=== PATIENT | male | born 1955 | race Caucasian/White ===

== ENCOUNTER 2021-02-06 13:32 | Outpatient (REF) | payer MEDICARE, OTHER, SELFPAY ==
[2021-02-06 18:35] LABS: MANUAL DIFF FLAG NO
[2021-02-06 18:37] LABS: Basophils Percent Auto 0.5 % (0-2); Eosinophils Absolute Auto 0.2 X10*3/uL (0.0-0.4); Eosinophils Percent Auto 3.2 % (0-4); Hematocrit 45.7 % (42-52); Hemoglobin 14.8 g/dl (14.0-18.0); Imm Gran Abs Auto 0.02 X10*3/uL (0.00-0.03); Imm Gran Pct Auto 0.3 % (0.0-0.4); Lymphocytes Absolute Auto 1.9 X10*3/uL (1.2-4.9); Lymphocytes Percent Auto 27.9 % (20-40); Mean Corpuscular HGB Conc 32.4 g/dl (31.0-36.0); Mean Corpuscular Volume 95.8 fL (80-98); Mean Platelet Volume 10.4 fL (9.4-12.4); Monocytes Absolute Auto 0.5 X10*3/uL (0.1-1.2); Monocytes Percent Auto 6.9 % (2-11); Neutrophils Absolute Auto 4.1 X10*3/uL (2.0-8.3); Neutrophils Percent Auto 61.2 % (45-73); Platelet Count 226 X10*3/uL (160-400); Red Blood Count 4.77 X10*6/uL (4.60-5.80); Red Cell Distribution Width 14.2 % (11.0-16.0); White Blood Count 6.7 X10*3/uL (4.8-10.8)
[2021-02-06 19:01] LABS: Alanine Aminotransferase 21 U/L (0-40); Alkaline Phosphatase 88 U/L (39-117); Anion Gap 14 (12-20); Aspartate Amino Transferase 20 U/L (5-37); Bilirubin Total 0.4 mg/dL (0.0-1.0); Blood Urea Nitrogen 11 mg/dL (9-16); Calcium 8.9 mg/dL (8.4-10.2); Carbon Dioxide 28 mmol/L (22-29); Chloride 108 mmol/L (96-108); Cholesterol 162 mg/dL; Estimated Glomerular Filt Rate > 60; Glucose Random 87 mg/dL (60-115); HDL Cholesterol 47 mg/dL; Potassium 4.3 mmol/L (3.3-5.1); Sodium 146 mmol/L (135-145); Total Protein 6.6 g/dL (6.5-8.0); Triglycerides 456 mg/dL
[2021-02-06 19:23] LABS: Prostate Specific Antigen 0.59 ng/mL (<0.05-4.0)
== END 2021-02-06 13:33 | disposition home or self-care (01) ==
LOC: HO.MANLDS 13:32
PROVIDERS: PCP Internal Medicine; Visit Provider Internal Medicine
DX: I25.10 Atherosclerotic heart disease of native coronary artery without angina pectoris (principal); Z12.5 Encounter for screening for malignant neoplasm of prostate
CPT/HCPCS: 36415; 80053; 80061; 84153; 85025

== ENCOUNTER 2021-11-06 10:28 | Outpatient (REF) | payer MEDICARE, MEDICAID, SELFPAY ==
[2021-11-06 13:26] LABS: MANUAL DIFF FLAG NO
[2021-11-06 13:30] LABS: Basophils Percent Auto 0.4 % (0-2); Eosinophils Absolute Auto 0.1 X10*3/uL (0.0-0.4); Eosinophils Percent Auto 1.4 % (0-4); Hemoglobin 14.6 g/dl (14.0-18.0); Imm Gran Abs Auto 0.03 X10*3/uL (0.00-0.03); Imm Gran Pct Auto 0.4 % (0.0-0.4); Lymphocytes Absolute Auto 1.6 X10*3/uL (1.2-4.9); Lymphocytes Percent Auto 22.8 % (20-40); Mean Corpuscular HGB Conc 33.2 g/dl (31.0-36.0); Mean Corpuscular Hemoglobin 30.8 pg (27.0-33.0); Mean Corpuscular Volume 92.8 fL (80.0-98.0); Mean Platelet Volume 10.3 fL (9.4-12.4); Monocytes Absolute Auto 0.7 X10*3/uL (0.1-1.2); Monocytes Percent Auto 9.4 % (2-11); Neutrophils Absolute Auto 4.6 x10*3/uL (2.0-8.3); Neutrophils Percent Auto 65.6 % (45-73); Platelet Count 297 X10*3/uL (160-400); Red Blood Count 4.74 X10*6/uL (4.60-5.80); Red Cell Distribution Width 13.1 % (11.0-16.0); White Blood Count 7.1 X10*3/uL (4.8-10.8)
[2021-11-06 14:00] LABS: Alanine Aminotransferase 21 U/L (0-40); Albumin Level 4.1 g/dL (3.5-5.0); Alkaline Phosphatase 79 U/L (39-117); Amylase 42 U/L (28-100); Anion Gap 13 (12-20); Aspartate Amino Transferase 18 U/L (5-37); Bilirubin Total 0.3 mg/dL (0.0-1.0); Blood Urea Nitrogen 18 mg/dL (9-16); C Reactive Protein 0.49 mg/dL (< or = 0.50); Calcium 9.4 mg/dL (8.4-10.2); Carbon Dioxide 24 mmol/L (22-29); Chloride 108 mmol/L (96-108); Estimated Glomerular Filt Rate > 60; Gamma Glutamyl Transpeptidase 25 U/L (11-51); Glucose Random 119 mg/dL (60-115); Iron 126 mcg/dL (45-160); Lipase 29 U/L (8-78); Percent Iron Saturation 34 % (15-50); Potassium 4.3 mmol/L (3.3-5.1); Sodium 141 mmol/L (135-145); Total Iron Binding Capacity 372 mcg/dL (228-428); Total Protein 6.8 g/dL (6.5-8.0); Unsaturated Iron Binding 246 ug/dL
[2021-11-06 14:14] LABS: Erythrocyte Sedimentation Rate 17 MM/HR (0-15)
[2021-11-06 14:22] LABS: Ferritin 191 ng/mL (20-250)
== END 2021-11-06 10:29 | disposition home or self-care (01) ==
LOC: HO.MANLDS 10:28
PROVIDERS: PCP Physician Assistant; Visit Provider Physician Assistant
DX: R10.9 Unspecified abdominal pain (principal)
CPT/HCPCS: 36415; 80053; 82150; 82728; 82977; 83540; 83690; 85025; 85652; 86140

== ENCOUNTER 2022-08-08 09:58 | Outpatient (REF) | payer MEDICARE, MEDICAID, SELFPAY ==
[2022-08-08 11:14] LABS: MANUAL DIFF FLAG NO
[2022-08-08 11:24] LABS: Basophils Absolute Auto 0.1 X10*3/uL (0.0-0.2); Basophils Percent Auto 0.8 % (0-2); Eosinophils Absolute Auto 0.2 X10*3/uL (0.0-0.4); Eosinophils Percent Auto 3.2 % (0-4); Hematocrit 44.6 % (42.0-52.0); Imm Gran Abs Auto 0.02 X10*3/uL (0.00-0.03); Imm Gran Pct Auto 0.3 % (0.0-0.4); Lymphocytes Percent Auto 27.2 % (20-40); Mean Corpuscular HGB Conc 33.6 g/dl (31.0-36.0); Mean Corpuscular Volume 92.1 fL (80.0-98.0); Mean Platelet Volume 10.1 fL (9.4-12.4); Monocytes Absolute Auto 0.6 X10*3/uL (0.1-1.2); Monocytes Percent Auto 7.6 % (2-11); Neutrophils Absolute Auto 4.4 x10*3/uL (2.0-8.3); Neutrophils Percent Auto 60.9 % (45-73); Platelet Count 235 X10*3/uL (160-400); Red Blood Count 4.84 X10*6/uL (4.60-5.80); Red Cell Distribution Width 13.4 % (11.0-16.0); White Blood Count 7.3 X10*3/uL (4.8-10.8)
[2022-08-08 14:39] LABS: Alanine Aminotransferase 22 U/L (0-40); Albumin Level 4.1 g/dL (3.5-5.0); Alkaline Phosphatase 94 U/L (39-117); Anion Gap 14 (12-20); Aspartate Amino Transferase 18 U/L (5-37); Bilirubin Total 0.5 mg/dL (0.0-1.0); Blood Urea Nitrogen 13 mg/dL (9-16); Calcium 9.2 mg/dL (8.4-10.2); Carbon Dioxide 25 mmol/L (22-29); Chloride 105 mmol/L (96-108); Cholesterol 162 mg/dL; Estimated Glomerular Filt Rate > 60; Glucose Random 100 mg/dL (60-115); HDL Cholesterol 38 mg/dL; LDL Cholesterol Calculated 62 mg/dl; Potassium 4.3 mmol/L (3.3-5.1); Sodium 140 mmol/L (135-145); Total Protein 6.5 g/dL (6.5-8.0); Triglycerides 314 mg/dL
== END 2022-08-08 09:59 | disposition home or self-care (01) ==
LOC: HO.MANLDS 09:58
PROVIDERS: Visit Provider Internal Medicine
DX: Z00.00 Encounter for general adult medical examination without abnormal findings (principal); Z13.220 Encounter for screening for lipoid disorders; Z12.5 Encounter for screening for malignant neoplasm of prostate
CPT/HCPCS: 36415; 80053; 80061; 84153; 85025

== ENCOUNTER 2023-04-02 09:00 | Outpatient (REF) | payer MEDICARE, MEDICAID, SELFPAY ==
[2023-04-02 11:23] LABS: MANUAL DIFF FLAG NO
[2023-04-02 11:38] LABS: Basophils Absolute Auto 0.1 X10*3/uL (0.0-0.2); Basophils Percent Auto 0.8 % (0-2); Eosinophils Absolute Auto 0.2 X10*3/uL (0.0-0.4); Eosinophils Percent Auto 2.3 % (0-4); Hematocrit 48.5 % (42.0-52.0); Hemoglobin 15.9 g/dl (14.0-18.0); Imm Gran Abs Auto 0.03 X10*3/uL (0.00-0.03); Imm Gran Pct Auto 0.4 % (0.0-0.4); Lymphocytes Absolute Auto 2.1 X10*3/uL (1.2-4.9); Lymphocytes Percent Auto 24.7 % (20-40); Mean Corpuscular HGB Conc 32.8 g/dl (31.0-36.0); Mean Corpuscular Hemoglobin 31.4 pg (27.0-33.0); Mean Corpuscular Volume 95.8 fL (80.0-98.0); Mean Platelet Volume 10.3 fL (9.4-12.4); Monocytes Absolute Auto 0.7 X10*3/uL (0.1-1.2); Monocytes Percent Auto 8.2 % (2-11); Neutrophils Absolute Auto 5.4 x10*3/uL (2.0-8.3); Neutrophils Percent Auto 63.6 % (45-73); Platelet Count 248 X10*3/uL (160-400); Red Blood Count 5.06 X10*6/uL (4.60-5.80); Red Cell Distribution Width 14.6 % (11.0-16.0); White Blood Count 8.4 X10*3/uL (4.8-10.8)
[2023-04-02 11:48] LABS: Estimated Average Glucose 91 mg/dL; Hemoglobin A1c % 4.8 %
[2023-04-02 12:23] LABS: Alanine Aminotransferase 18 U/L (0-40); Albumin Level 4.2 g/dL (3.5-5.0); Alkaline Phosphatase 98 U/L (39-117); Anion Gap 13 (12-20); Aspartate Amino Transferase 15 U/L (5-37); Bilirubin Total 0.6 mg/dL (0.0-1.0); Blood Urea Nitrogen 12 mg/dL (9-16); Calcium 9.5 mg/dL (8.4-10.2); Carbon Dioxide 27 mmol/L (22-29); Chloride 107 mmol/L (96-108); Cholesterol 150 mg/dL; Estimated Glomerular Filt Rate > 60; Glucose Random 87 mg/dL (60-115); HDL Cholesterol 35 mg/dL; LDL Cholesterol Calculated 51 mg/dl; Potassium 4.5 mmol/L (3.3-5.1); Sodium 142 mmol/L (135-145); Total Protein 6.9 g/dL (6.5-8.0); Triglycerides 320 mg/dL
[2023-04-02 12:40] LABS: Prostate Specific Antigen 0.67 ng/mL (<0.05-4.0)
== END 2023-04-02 09:01 | disposition home or self-care (01) ==
LOC: HO.MANLDS 09:00
PROVIDERS: Visit Provider Physician Assistant
DX: Z00.00 Encounter for general adult medical examination without abnormal findings (principal); I25.10 Atherosclerotic heart disease of native coronary artery without angina pectoris; E78.5 Hyperlipidemia, unspecified; Z12.5 Encounter for screening for malignant neoplasm of prostate
CPT/HCPCS: 36415; 80053; 80061; 83036; 84153; 85025

== ENCOUNTER 2024-03-20 08:01 | Outpatient (REF) | payer MEDICARE, MEDICAID, SELFPAY ==
[2024-03-20 13:08] LABS: MANUAL DIFF FLAG NO
[2024-03-20 13:31] LABS: Basophils Absolute Auto 0.1 X10*3/uL (0.0-0.2); Basophils Percent Auto 0.7 % (0-2); Eosinophils Absolute Auto 0.2 X10*3/uL (0.0-0.4); Eosinophils Percent Auto 3.3 % (0-4); Hemoglobin 15.8 g/dl (14.0-18.0); Imm Gran Abs Auto 0.03 X10*3/uL (0.00-0.03); Imm Gran Pct Auto 0.4 % (0.0-0.4); Lymphocytes Absolute Auto 2.2 X10*3/uL (1.2-4.9); Lymphocytes Percent Auto 32.3 % (20-40); Mean Corpuscular HGB Conc 32.9 g/dl (31.0-36.0); Mean Corpuscular Hemoglobin 30.8 pg (27.0-33.0); Mean Corpuscular Volume 93.6 fL (80.0-98.0); Mean Platelet Volume 9.8 fL (9.4-12.4); Monocytes Absolute Auto 0.5 X10*3/uL (0.1-1.2); Monocytes Percent Auto 7.9 % (2-11); Neutrophils Absolute Auto 3.7 x10*3/uL (2.0-8.3); Neutrophils Percent Auto 55.4 % (45-73); Platelet Count 217 X10*3/uL (160-400); Red Blood Count 5.13 X10*6/uL (4.60-5.80); Red Cell Distribution Width 14.3 % (11.0-16.0); White Blood Count 6.7 X10*3/uL (4.8-10.8)
[2024-03-20 13:49] LABS: Alanine Aminotransferase 22 U/L (0-40); Albumin Level 3.9 g/dL (3.5-5.0); Alkaline Phosphatase 85 U/L (39-117); Anion Gap 12 (12-20); Aspartate Amino Transferase 21 U/L (5-37); Bilirubin Total 0.5 mg/dL (0.0-1.0); Blood Urea Nitrogen 11 mg/dL (9-16); Calcium 9.3 mg/dL (8.4-10.2); Carbon Dioxide 25 mmol/L (22-29); Chloride 108 mmol/L (96-108); Cholesterol 144 mg/dL (<200); Estimated Glomerular Filt Rate > 60; Glucose Random 86 mg/dL (60-115); HDL Cholesterol 41 mg/dL (>40); LDL Cholesterol Calculated 58 mg/dL (<100); Potassium 4.1 mmol/L (3.3-5.1); Sodium 141 mmol/L (135-145); Total Protein 6.9 g/dL (6.5-8.0); Triglycerides 225 mg/dL (<150)
[2024-03-20 14:00] LABS: Prostate Specific Antigen 0.79 ng/mL (<0.05-4.0)
== END 2024-03-20 08:02 | disposition home or self-care (01) ==
LOC: HO.MANLDS 08:01
PROVIDERS: Visit Provider Internal Medicine
DX: Z12.5 Encounter for screening for malignant neoplasm of prostate (principal); E78.00 Pure hypercholesterolemia, unspecified
CPT/HCPCS: 36415; 80053; 80061; 84153; 85025

== ENCOUNTER 2025-01-05 11:44 | Outpatient (REF) | payer MEDICARE, MEDICAID, SELFPAY ==
[2025-01-05 13:31] LABS: MANUAL DIFF FLAG NO
[2025-01-05 13:55] LABS: Basophils Absolute Auto 0.1 X10*3/uL (0.0-0.2); Basophils Percent Auto 0.7 % (0-2); Eosinophils Absolute Auto 0.2 X10*3/uL (0.0-0.4); Eosinophils Percent Auto 2.8 % (0-4); Hematocrit 47.6 % (42.0-52.0); Hemoglobin 15.6 g/dl (14.0-18.0); Imm Gran Abs Auto 0.03 X10*3/uL (0.00-0.03); Imm Gran Pct Auto 0.4 % (0.0-0.4); Lymphocytes Absolute Auto 2.4 X10*3/uL (1.2-4.9); Lymphocytes Percent Auto 33.8 % (20-40); Mean Corpuscular HGB Conc 32.8 g/dl (31.0-36.0); Mean Corpuscular Hemoglobin 30.4 pg (27.0-33.0); Mean Corpuscular Volume 92.6 fL (80.0-98.0); Mean Platelet Volume 10.2 fL (9.4-12.4); Monocytes Absolute Auto 0.5 X10*3/uL (0.1-1.2); Monocytes Percent Auto 7.4 % (2-11); Neutrophils Absolute Auto 3.9 x10*3/uL (2.0-8.3); Neutrophils Percent Auto 54.9 % (45-73); Platelet Count 201 X10*3/uL (160-400); Red Blood Count 5.14 X10*6/uL (4.60-5.80); Red Cell Distribution Width 13.4 % (11.0-16.0); White Blood Count 7.1 X10*3/uL (4.8-10.8)
[2025-01-05 14:00] LABS: Estimated Average Glucose 105 mg/dL; Hemoglobin A1c % 5.3 % (<6.0)
[2025-01-05 14:08] LABS: Cholesterol 137 mg/dL (<200); HDL Cholesterol 33 mg/dL (>40); Iron 108 mcg/dL (45-160); LDL Cholesterol Calculated 31 mg/dL (<100); Percent Iron Saturation 36 % (15-50); Total Iron Binding Capacity 299 mcg/dL (228-428); Triglycerides 366 mg/dL (<150); Unsaturated Iron Binding 191 ug/dL
--- OUTSIDE RECORDS SUMMARY | 2025-01-05 14:30 | XMS_ITS | Data Portability ---
Author Organization [facility] Address [address] [place] [address] Assessment Encounter Date Assessment Date Assessment LastModified by Organization Details LastModified Time 02/03/2021 02/03/2021 [id number] [place] [id number] (COMPUTER SECURITY COORDINATOR) MDM MODERATE MUST MEET 2 OUT OF 3 ELEMENTS: PROBLEMS, DATA OR RISK ELEMENT 1: PROBLEMS ADDRESSED OR 2 OR MORE STABLE CHRONIC ILLNESSES OR 1 UNDIAGNOSED NEW PROBLEM OR OR ELEMENT 2: DATA MUST MEET 1 OF 3 CATEGORIES CATEGORY 1: REVIEW OF PRIOR EXTERNAL NOTES, REVIEW OF RESULTS, ORDERING OF EACH TEST, ASSESSMENT REQUIRING INDEPENDENT HISTORIAN OR CATEGORY 2: OR CATEGORY 3: ELEMENT 3: RISK RISK OF COMPLICATIONS AND/OR MORBIDITY OR MORTALITY OF PATIENT MANAGEMENT PROVIDER MUST THOROUGHLY DOCUMENT EACH ELEMENT THAT IS COVERED Not available 02/03/2021 11:03:05 09/03/2022 09/03/2022 [id number] [place] [id number] (COMPUTER SECURITY COORDINATOR) : MDM LOW MUST MEET 2 OF 3 ELEMENTS: PROBLEMS, DATA OR RISK ELEMENT 1: PROBLEMS ADDRESSED (LOW): 2 OR MORE SELF-LIMITED OR MINOR PROBLEMS OR 1 STABLE CHRONIC ILLNESS OR 1 ACUTE UNCOMPLICATED ILLNESS OR INJURY ELEMENT 2: DATA TO BE REVISED AND ANALYZED (LOW) MUST MEET 1 OF 2 CATEGORIES: CATEGORY 1. REVIEW OF PRIOR EXTERNAL NOTES/RESULTS, ORDERING OF TEST(S) CATEGORY 2. ASSESSMENT REQUIRING INDEPENDENT HISTORIAN(S) INCLUDE WHO THE HISTORIAN IS AND RELATION TO PT AND WHY PT IS UNABLE TO GIVE COMPLETE HISTORY ELEMENT 3: RISK (LOW) RISK OF COMPLICATIONS AND/OR MORBIDITY OR MORTALITY OF PATIENT MANAGEMENT PROVIDER MUST THOROUGHLY DOCUMENT ALL OF THE ELEMENTS COVERED Not available 09/03/2022 10:21:12 04/20/2024 04/20/2024 [id number] [place] [id number] (COMPUTER SECURITY COORDINATOR) MDM MODERATE MUST MEET 2 OUT OF 3 ELEMENTS: PROBLEMS, DATA OR RISK ELEMENT 1: PROBLEMS ADDRESSED 1 OR MORE CHRONIC ILLNESS WITH EXACERBATION OR 2 OR MORE STABLE CHRONIC ILLNESSES OR 1 UNDIAGNOSED NEW PROBLEM OR 1 ACUTE ILLNESS W/SYMPTOMS OR 1 ACUTE COMPLICATED INJURY ELEMENT 2: DATA MUST MEET 1 OF 3 CATEGORIES CATEGORY 1: REVIEW OF PRIOR EXTERNAL NOTES, REVIEW OF RESULTS, ORDERING OF EACH TEST, ASSESSMENT REQUIRING INDEPENDENT HISTORIAN OR CATEGORY 2: INDEPENDENT INTERPRETATION OF TESTS BY ANOTHER PHYSICIAN OR SPECIALIST OR CATEGORY 3: DISCUSSION OF MGT OR TEST INTERPRETATION W/EXTERNAL PHYSICIAN OR SPECIALIST ELEMENT 3: RISK RISK OF COMPLICATIONS AND/OR MORBIDITY OR MORTALITY OF PATIENT MANAGEMENT PROVIDER MUST THOROUGHLY DOCUMENT EACH ELEMENT THAT IS COVERED Not available 04/20/2024 16:22:15 Plan of Treatment Reminders Order Date Submit Date Provider Last Modified By Organization Details Last Modified Time Details Appointments FOLLOW UP 15 2024 11:15A SIOBHAN REIS Not available Not available Not available Lab lipid panel, serum 2024 025 [facility], [address] [place] [address], [id number], 01/05/2025 11:25:46 hemoglobi n A1c, QN, blood 2024 025 [facility], [address] [place] [address], [id number], 01/05/2025 11:28:36 CBC w/ auto diff 2024 025 [facility], [address] [place] [address], [id number], 01/05/2025 11:25:46 iron + TIBC + ferritin, serum 2024 025 [facility], [address] [place] [address], [id number], 01/05/2025 11:25:46 lipid panel, serum 2020 021 [facility], [address] [place] [address], [id number], 02/07/2021 11:56:35 CMP, serum or plasma 2020 021 [facility], [address] [place] [address], [id number], 02/07/2021 11:56:34 CBC w/ auto diff 2020 021 [facility], [address] [place] [address], [id number], 02/07/2021 11:56:35 PSA, serum or plasma 2020 021 [facility], [address] [place] [address], [id number], 02/07/2021 11:56:35 lipid panel, blood 2018 019 [facility], [address] [place] [address], [id number], 04/13/2019 08:20:23 CMP, serum or plasma 2018 019 [facility], [address] [place] [address], [id number], 04/13/2019 08:20:23 PSA, serum or plasma 2018 019 [facility], [address] [place] [address], [id number], 04/13/2019 08:20:23 Referral gastroent erologist referral 2024 025 [email or web address] [facility], [address] [place] [address], [id number], 01/05/2025 12:06:22 Procedures None recorded. Surgeries None recorded. Imaging None recorded. Medication Orders escitalop cain 10 mg tablet 2021 022 [id number], [address] [place] [address], [id number], 10/05/2022 12:04:37 halobetas ol propionat e 0.05 % topical ointment 2020 021 [id number], [address], [place], [id number], 02/03/2021 10:54:21 Patient TargetsNo targets recorded. Patient Instructions Encounter Date Encounter Id Patient Instructions Last Modified By Organization Details Last Modified Time 03/20/2019 [id number] sleep apnea: car e instructions Not available 03/20/2019 14:58:50 learning about mood disorders Not available 03/20/2019 14:58:50 02/03/2021 [id number] deciding about using medicines to quit smoking Not available 02/03/2021 11:02:02 Quitting Tobacco : Care Instructions Not available 02/03/2021 11:02:01 sleep apnea: car e instructions Not available 02/03/2021 10:54:14 09/03/2022 [id number] learning about mood disorders Not available 09/03/2022 10:22:06 Reason for Referral [employer] Referral for Melena melena, coughing up blood, recommended by ER for further eval Referring Physician: Callie Root, Internal Medicine, Encounter Date: 01/05/2025 Results Created Date Observation Date Name Description Value Unit Range Abnormal Flag Note LastModifiedBy Organization Detail LastModifiedTime Result Notes None recorded. Problems Name Problem SNOMED Code Status Onset Date Resolution Date Notes Provider Name and Address Organization Details Recorded Time Coronary arteriosc lerosis 52459913 Active 2017 Not Available [facility] 13:17:49 Concussio n injury of brain 949407490 Active 2017 1967 Not Available [facility] 13:17:49 Tobacco dependenc e syndrome 29167906 Active 2017 Not Available [facility] 13:17:49 Obstructi ve sleep apnea syndrome 17150966 Active 2017 Not Available [facility] 13:17:49 Depressiv e disorder 69933627 Active 2017 Not Available [facility] 13:17:49 Dyslipide sally 974022878 Active 2017 Not Available [facility] 1 13:17:49 Obesity 450416172 Active 2017 Not Available [facility] 13:17:49 Low back pain 345724186 Active 2017 work related Not Available [facility] 13:17:49 Multiple joint pain 70887585 Active 2023 Khari Alvarado, [address] [place], [address], [facility] 4 16:22:26 Melena 0377099 Active 2024 SIOBHAN FUENTES [address] [place] [address], [phone], [facility] 5 08:49:34 Hemoptysi s 56210271 Active 2024 SIOBHAN FUENTES [address] [place] [address], [address], [facility] 5 08:49:41 Problem Notes None recorded. Medical Equipment None Reported. Allergies Allergen ID Allergen Name Allergen Category Reaction Reaction Severity Criticality Documentation Date Start Date Code Code System Note Provider Name and Address Organization Details Recorded Time 2446 cat dander environme nt Not available Not available Not available 08/19/2018 [id number] UNK Luana Mendoza [facility] 8 08:59:19 Medications Name Sig Start Date Stop Date Status Note LastModified by Organization Details LastModified Time atorvastati n 80 mg tablet TAKE 1 TABLET BY MOUTH EVERY DAY active Not Available Not Available No t Available azithromyci n 250 mg tablet TAKE 2 TABLETS (500 MG) BY ORAL ROUTE ONCE DAILY FOR 1 DAY THEN 1 TABLET (250 MG) BY ORAL ROUTE ONCE DAILY FOR 4 DAYS 02/16 completed Not Available Not Available Not Available meloxicam 15 mg tablet TAKE 1 TABLET BY MOUTH EVERY DAY TAKE WITH FOOD NEEDED FOR PAIN active Not Available Not Available No t Available tramadol 50 mg tablet TK 1 T PO TID PRN. 04/20 completed Not Available Not Available Not Available gemfibrozil 600 mg tablet TAKE 1 TABLET BY MOUTH TWICE DAILY 30 MINUTES BEFORE THE MORNING AND EVENING MEAL 11/07 completed Not Available Not Available Not Available halobetasol propionate 0.05 % topical ointment APPLY THIN LAYER TOPICALLY TO THE AFFECTED AREA TWICE DAILY. DO NOT EXCEED 50 GM EVERY WEEK OR 2 WEEKS DURATION active Not Available Not Available No t Available nicotine 21 mg/24 hr daily transdermal patch Apply 1 patch every day by transderm al route for 30 days. 11/21 completed Not Available Not Available Not Available gabapentin 300 mg capsule TK 1 C PO TID 04/20 completed Not Available Not Available Not Available omeprazole 20 mg capsule,del ayed release active Not Available Not Available Not Available etodolac 400 mg tablet TAKE 1 TABLET BY MOUTH TWICE DAILY NEEDED 04/20 completed Not Available Not Available Not Available mirtazapine 15 mg tablet TAKE 1 TABLET BY MOUTH EVERY DAY AT BEDTIME no 90 day supply needs appt call office 04/20 completed Not Available Not Available Not Available Cheratussin AC 10 mg-100 mg/5 mL oral liquid Take 10 mL every 4 hours by oral route as needed for 5 days. 02/16 completed Not Available Not Available Not Available escitalopra m 10 mg tablet TAKE 1 TABLET BY MOUTH EVERY DAY 10/05 completed Not Available Not Available Not Available Tussin 10ml every 4 hours 02/16 completed Not Available Not Available Not Available lidocaine 5 % topical ointment Apply 2 grams up to 4 times daily to affected area(s). active Not Available Not Available No t Available Vitals Date Recorded Body height Body mass index (BMI) Body weight Heart rate Oxygen saturation Oxygen saturation in Arterial blood by Pulse oximetry Systolic blood pressure Diastolic blood pressure Provider Name and Address Organization Details Last Updated DateTime 5 180.34 cm 34.4 kg/m2 645565. 32 g 68 /min 99 % 99 % 142 mm[Hg] 82 mm[Hg] [facility] 5 11:08:14 Date Recorded Body height Body mass index (BMI) Body weight Heart rate Oxygen saturation Oxygen saturation in Arterial blood by Pulse oximetry Systolic blood pressure Diastolic blood pressure Provider Name and Address Organization Details Last Updated DateTime 9 179.71 cm 36.3 kg/m2 875123. 35 g 99 /min 97 % 97 % 122 mm[Hg] 74 mm[Hg] Brittani Duff [facility] 9 14:34:36 Social History Question Answer Notes LastModified by Organizat ion Details LastModified Time Tobacco Smoking Status Current Every Day Smoker 1 ppd Luana Mendoza howard [facility] 08/19/2018 15:01:43 What Was The Date Of Your Most Recent Tobacco Screening? 01/05/2025 [email or web address] Information not available 01/05/2025 Sex: Unknown Functional Status None recorded. Mental Status None recorded. Family History Nothing Reported. Medical History No medical history recorded. Immunizations Vaccine Type Date Status Note Provider Nam e and Address Organization Details Recorded Time COVID-19, mRNA, LNP-S, PF, 30 mcg/0.3 mL dose 1 completed Not Available [facility] 08/30/2023 10:12:56 Influenza, split virus, quadrivalent, preservative 8 completed Not Available [facility] 08/30/2023 10:12:56 pneumococcal polysaccharide PPV23 8 completed Not Available [facility] 08/30/2023 10:12:56 Influenza, split virus, quadrivalent, preservative 0 completed Not Available [facility] 08/30/2023 10:12:56 Influenza, split virus, quadrivalent, preservative 1 completed Not Available [facility] 08/30/2023 10:12:56 zoster, unspecified formulation 1 completed Not Available [facility] 08/30/2023 10:12:56 Past Encounters Encounter ID Performer Location Encounter Start Date Encounter Closed Date Diagnosis/Indication Diagnosis SNOMED-CT Code Diagnosis ICD10 Code Diagnosis Note [id number] Khari Alvarado DO [facility] [address] [facility],[place] [address] 08/19/2018 14:51:15 08/20/2018 16:19:33 Tobacco dependence syndrome 33093974 F17.200 will try to get patches to quit Coronary arteriosclerosis 01203387 I25.10 will cont to try to get him to quit smoking and will be seeing cardiol once a year January THOM Harris [facility] [address] [facility],[place] [address] 11/21/2018 09:32:49 11/21/2018 10:54:38 Tobacco dependence syndrome 77071844 F17.200 Obstructiv e sleep apnea syndrome 12062241 G47.33 Obesity 958673492 E66.9 Low back pain 537953446 M54.5 Lower resp iratory tract infection 54178192 J22 in setting of smoker at risk for bacterial infection, spo2 lower than baseline, thought other vitals appear stable consider mucinex-dm which is longer acting than robitussin Khari Alvarado DO [facility] [address] [facility],[place] [address] 03/20/2019 14:16:13 03/20/2019 15:05:21 Depressive disorder 95185106 F32.9 actually is doing ok overall Dyslipidemia 576610047 E 78.5 stable but needs some lab Obstructiv e sleep apnea syndrome 90760911 G47.33 quiet and doing ok Coronary arteriosclerosis 38750999 I25.10 will cont to try to get him to quit smoking and will be seeing cardiol once a year [id number] Khari Alvarado DO [facility] [address],[place] [address] 02/03/2021 08:36:51 02/03/2021 11:08:27 Obstructive sleep apnea syndrome 16344204 G47.33 relates is not interested in having this eval doesnt have a cpap and never has states sleeps well 7-8 hrs ea nite Low back pain 510770319 M54.5 states that [facility] has been following him relates has gotten Coronary arteriosclerosis 72743994 I25.10 will cont to try to get him to quit smoking and will be seeing cardiol once a year and will bee seeing cardio next month Allergic rhinitis 506220 04 J30.9 claritin has been helpful and doing ok Psoriasis 0488470 L40.9 has done very well with the halpbetaso l and is great but running out Tobacco de pendence syndrome 21406296 F17.200 he has been able to stop smoking ? [id number] Khari Hope. Ghazalaalicja, [facility] [address] [facility] [address],[place] [address] 09/03/2022 08:24:01 09/03/2022 13:33:26 Depressive disorder 01992266 F32.9 actually is doing ok overall [id number] Khari Alvarado DO [facility] [address] [facility] [address],[place] [address] 04/20/2024 09:09:25 04/20/2024 16:41:13 Coronary arteriosclerosis 27252337 I25.10 will cont to try to get him to quit smoking and will be seeing cardiol once a year and will bee seeing cardio next month Dyslipidemia 408898596 E 78.5 doing great and LDL good HDL good Multiple joint pain 3567 8005 M25.50 is on meloxicam [id number] SIOBHAN FUENTES [facility] [address] [facility] [address] [address] 01/05/2025 10:50:16 01/05/2025 12:06:22 Melena [id number] K92.1 resolved Hemoptysis 11305418 R04. 2 resolved Dyslipidemia 996864261 E 78.2 will set up with check Health Concerns Section Related Observation LastModified by Organization Detai ls LastModified Time None Recorded Concern Status LastModified by Organization Details LastModified Time None Recorded Advance Directives Directive None Recorded Payers Encounter Date Sequence Insurance Name Policy Number Policy Pereira Covered Member ID Pereira Member ID Guarantor Name 03/20/2019 1 [place] [employer] Oleg Lu [id number] Oleg Lu 02/03/2021 1 [place] [employer] Oleg Lu [id number] Oleg Lu 09/03/2022 2 [place] [facility] Oleglillie Lu [id number] Oleg Lu 09/03/2022 1 [place] [employer] Oleg Lu [id number] Oleg Lu 04/20/2024 2 [place] [facility] Oleg Lu [id number] Oleg Lu 04/20/2024 1 [place] [employer] Oleg Kvng Aly [id number] Oleg Lu 01/05/2025 2 [place] Oleg Lu [id number] Oleg Lu 01/05/2025 1 [place] [facility] Oleg Lu [id number] Oleg Lu Notes Date Note Type Note Provider Name a nd Address Organization Details Recorded Time 9 text/html here for rechkk states is having a few large epistaxis episodes was seen by the ER etc and was stopped now has an appt to see the ent on april overall 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 allergies are a probelm adn he takes with claritin Khari Alvarado, [address] [place], [address], [facility] 02/03/2021 11:03:15 2 text/html patient is evaluated via tele/video assessment per patient consentduring current pandemicrelates he is frustrated about not working and is feeling downrelates has used a med in the past and has been helpful Khari Alvarado DO [address] [place], [address], [facility] 09/03/2022 13:33:05 4 text/html patient is evaluated via tele/video assessment per patient consentduring current pandemicno cp no sob appetite okback pain ok with meloxicamtrying to keep activebowels ok bladder okreviewd lab in detail Khari Alvarado DO [address] [place], [address], [facility] 04/20/2024 16:24:50 5 text/html ER f/u patient presented to ER for 1 to 2 week hx of melena with possible hemoptysishad a colonoscopy 4 years ago, which was negative with recommendation for fu in 10 yearsno recent changes to diet, recent surgeries, recent infectionsdenies GERD symptoms or sig abdominal pain was having bowel movement more frequently, about 4 to 5 times per day, stool was dark and tarrynoted tasted blood in his month and noted bleeding possibly from his mouth, esophagus? was not from his nose lab work was otherwise unremarkable for sig blood loss he was started on omeprazole and d/c to f/u with PCP for additional work up may recommended sooner colonoscopy with endoscope given new symptoms the patient is holding the baby ASA, bleeding has stoppedwill set up with GI for fu endoscope/colonoscop y SIOBHAN FUENTES [address] [facility], [place], [address], [facility] 01/05/2025 11:28:42
--- OUTSIDE RECORDS SUMMARY | 2025-01-05 14:30 | XMS_ITS | Continuity of Care Document ---
Author Organization [facility], [facility] Address [address] [facility] [address] [place] [address] [place] [address] Assessment No assessment recorded. Plan of Treatment Reminders Order Date Submit Date Provider Last Modified By Organization Details Last Modified Time Details Appointments FOLLOW UP 15 2024 11:15A SIOBHAN REIS Not available Not available Not available Lab lipid panel, serum 2024 025 [facility], [address] [place] [address], [id number], 01/05/2025 11:25:46 hemoglobi n A1c, QN, blood 2024 025 [facility], [address] [place] [address], [place], [id number], 01/05/2025 11:28:36 CBC w/ auto diff 2024 025 [facility], [address] [place] [address], [id number], 01/05/2025 11:25:46 iron + TIBC + ferritin, serum 2024 025 [facility], [address] [place] [address], [id number], 01/05/2025 11:25:46 Referral gastroent erologist referral 2024 025 [email or web address] [facility], [address] [place] [address], [id number], 01/05/2025 12:06:22 Procedures None recorded. Surgeries None recorded. Imaging None recorded. Medication Orders None recorded. Patient TargetsNo targets recorded. Patient InstructionsNo instructions recorded. 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 Referral for Melena melena, coughing up blood, recommended by ER for further eval Referring Physician: Callie Root, Internal Medicine, Encounter Date: 01/05/2025 Problems Name Problem SNOMED Code Status Onset Date Resolution Date Notes Provider Name and Address Organization Details Recorded Time Coronary arteriosc lerosis 85267500 Active 2017 Not Available [facility] 13:17:49 Concussio n injury of brain 742200937 Active 2017 1967 Not Available [facility] 13:17:49 Tobacco dependenc e syndrome 80784238 Active 2017 Not Available [facility] 13:17:49 Obstructi ve sleep apnea syndrome 84385037 Active 2017 Not Available [facility] 13:17:49 Depressiv e disorder 10344642 Active 2017 Not Available [facility] 1 13:17:49 Dyslipide sally 575328409 Active 2017 Not Available [facility] 1 13:17:49 Obesity 829947974 Active 2017 Not Available [facility] 1 13:17:49 Low back pain 266522567 Active 2017 work related Not Available [facility] 13:17:49 Multiple joint pain 90268598 Active 2023 Khari Alvarado DO [address] [place] [address], [phone], [facility] 4 16:22:26 Melena 2495801 Active 2024 SIOBHAN FUENTES [address] [place] [address], [phone], [facility] 5 08:49:34 Hemoptysi s 95537761 Active 2024 SIOBHAN FUENTES [address] [place] [address], [phone], [facility] 5 08:49:41 Problem Notes None recorded. Medical Equipment None Reported. Allergies Allergen ID Allergen Name Allergen Category Reaction Reaction Severity Criticality Documentation Date Start Date Code Code System Note Provider Name and Address Organization Details Recorded Time 2446 cat dander environme nt Not available Not available Not available 08/19/2018 [id number] UNK Luana lawrence [facility] 8 08:59:19 Medications Name Sig [...] Updated DateTime 5 180.34 cm 34.4 kg/m2 129099. 32 g 68 /min 99 % 99 % 142 mm[Hg] 82 mm[Hg] Yassine Bhatia [facility] 5 11:08:14 Social History Question Answer Notes LastModified by Organizat ion Details LastModified Time Tobacco Smoking Status Current Every Day Smoker 1 ppd Luana lawrence [facility] 08/19/2018 15:01:43 What Was The [...] dose 1 completed Not Available [facility] 08/30/2023 10:12:56 Influenza, split virus, quadrivalent, preservative 8 completed Not Available [facility] 08/30/2023 10:12:56 pneumococcal polysaccharide PPV23 8 completed Not Available [facility] 08/30/2023 10:12:56 Influenza, split virus, quadrivalent, preservative 0 completed Not Available [facility] 08/30/2023 10:12:56 Influenza, split virus, quadrivalent, preservative 1 completed Not Available [facility] 08/30/2023 10:12:56 zoster, unspecified formulation 1 completed Not Available [facility] 08/30/2023 10:12:56 Past Encounters Encounter ID Performer Location Encounter Start Date Encounter Closed Date Diagnosis/Indication Diagnosis SNOMED-CT Code Diagnosis ICD10 Code Diagnosis Note [id number] SIOBHAN FUENTES Internal [facility] [address] [facility] [address] 01/05/2025 10:50:16 01/05/2025 12:06:22 Melena [id number] K92.1 resolved Hemoptysis 65963226 R04. 2 resolved Dyslipidemia 991423181 E 78.2 will set up with check Health Concerns Section Related Observation LastModified by Organization Detai ls LastModified Time None Recorded Concern Status LastModified by Organization Details LastModified Time None Recorded Payers Encounter Date Sequence Insurance Name Policy Number Policy Pereira Covered Member ID Pereira Member ID Guarantor Name 01/05/2025 2 [place] [facility] Oleg Lu [id number] Oleg Lu 01/05/2025 1 [place] [employer] Oleg Lu [id number] Oleg Lu Notes Date Note Type Note Provider Name a nd Address Organization Details Recorded Time 01/05/2025 text/html ER f/u patient presented to ER [...] stoppedwill set up with GI for fu endoscope/colonosco py SIOBHAN FUENTES [address] [facility], [place], [address], [facility] 01/05/2025 11:28:42
== END 2025-01-05 11:45 | disposition home or self-care (01) ==
LOC: HO.MANLDS 11:44
PROVIDERS: Visit Provider Physician Assistant
DX: E78.2 Mixed hyperlipidemia (principal); K92.1 Melena; Z13.1 Encounter for screening for diabetes mellitus
CPT/HCPCS: 36415; 80061; 83036; 83540; 85025